=== PATIENT | male | born 1975 | race Caucasian/White ===

== ENCOUNTER 2016-10-17 10:42 | Day surgery (SDC) | payer BC ==
[2016-10-15 16:31] LABS: BUN (BLOOD UREA NITROGEN) 12 MG/DL (6-23); CALCIUM, SERUM 8.8 MG/DL (8.5-10.4); CHLORIDE, SERUM 104 MMOL/L (96-112); CO2 (CARBON DIOXIDE) 32 MMOL/L (24-34); CREATININE 1.15 MG/DL (0.70-1.30); GFR AFRICAN AMERICAN 92 ML/MIN (>=60); GFR NON AFRICAN AMERICAN 80 ML/MIN (>=60); GLUCOSE, SERUM 97 MG/DL (60-99); SODIUM, SERUM 142 MMOL/L (135-148)
--- NOTE | ~2016-10-17 | OP ---
Record Of Operation [facility] [address] [place]. [address] NAME: LE HERNANDEZ : 79 STATUS : [facility]#: [id number] AGE: 41 ADM/REG DATE : 10/17/16 MR#: [id number] REPORT SERV DATE: 10/17/16 DICTATED BY: MONICA PRINCE DATE: 10/17/16 REPORT STATUS : Draft TRANSCRIBED BY: MODL DATE: 10/17/16 DATE OF PROCEDURE: 10/17/2016 PREOPERATIVE DIAGNOSIS: Painful lipoma of the cephalad left shoulder. POSTOPERATIVE DIAGNOSIS: Painful lipoma of the cephalad left shoulder. PROCEDURE: Lipoma excision. SURGEON: Monica Prince M.D. ANESTHESIA: Local with sedation. ESTIMATED BLOOD LOSS: Nil. FLUIDS: Crystalloid. SPECIMEN: Lipoma. DRAINS: None. COMPLICATIONS: None. CONDITION: Good. INDICATION: Mr. Hernandez is a 41-year-old gentleman who has a lipoma on the cephalad aspect of the left shoulder. It has been present for a number of years, slowly increased in size. It is now causing discomfort. After review of risks, benefits, options, and side effects, he would like to proceed with excision. PROCEDURE IN DETAIL: After being identified and marked in the preop holding, he was brought to OR, positioned supine, and sedated. A bump was placed under the left back to somewhat elevate the left shoulder and then the left shoulder and neck were prepped and draped sterilely. He received Ancef intravenously. Again after the time-out was performed, we infiltrated the skin and subcu tissues, superficial peripheral and deep of the lipoma. Lipoma measured in the 8 to 10 cm size range. We made a transverse incision parallel to the edge of the trapezius muscle course, dissected through the skin and a very thin layer of subcu and exposed the lipoma. This was dissected out of the surrounding tissues with a combination of blunt retraction and electrocautery and excised from the deep fascia which appeared to be over the coracoacromial junction. Specimen was passed off the field. We carefully evaluated it and had removed all of the lipoma. Hemostasis was achieved with cautery as to risk couple of points of venous bleeding. Subcu was then closed with running 3-0 Vicryl. Dermis was closed with 4-0 Monocryl followed by Benzoin, Steri-Strips, and sterile dressing. Mr. Hernandez was recovered from sedation, transported to day surgery area, having tolerated the procedure well. Record Of Operation [facility] [address] [facility] [place] [address] NAME: LE HERNANDEZ : 79 STATUS : [facility]#: [id number] AGE: 41 ADM/REG DATE : 10/17/16 MR#: [id number] REPORT SERV DATE: 10/17/16 DICTATED BY: MONICA PRINCE DATE: 10/17/16 REPORT STATUS : Draft TRANSCRIBED BY: ALDA DATE: 10/17/16 FRANC/ALDA Monica Prince M.D. / [id number] CC: Marti Ott M.D.
[~2016-10-17 10:42] MED LIST: ADDERALL30 MG PO; CELEXA10 PO; ZESTRIL10 MG PO
== END 2016-10-17 14:15 | disposition home or self-care (01) ==
LOC: SDC 10:42
PROVIDERS: Surgery
PROC: 0XB30ZZ Excision of Left Shoulder Region, Open Approach (ICD-10-PCS; principal; 2016-10-17 08:45)
DX: D17.22 Benign lipomatous neoplasm of skin and subcutaneous tissue of left arm (principal); I10 Essential (primary) hypertension; G47.33 Obstructive sleep apnea (adult) (pediatric)
CPT/HCPCS: 80048; 88304; 93005; A9270-GY; J0690; J2250; J2405; J3010